=== PATIENT | male | born 1950 | race Caucasian/White ===

== ENCOUNTER 2019-06-05 20:10 | Emergency (ER) | payer MEDICARE, OTHER ==
[~2019-06-05] VITALS: Ht 182.9 cm; Wt 78.0 kg
[2019-06-05 20:55] LABS: BASOPHILS % (AUTO) 0.6 % (0-1); EOSINOPHILS # (AUTO) 0.1 X10'3 (0-0.9); EOSINOPHILS % (AUTO) 2.6 % (0-6); HEMATOCRIT 38.3 % (42.0-52.0); HEMOGLOBIN 12.9 g/dl (14.0-17.9); LYMPHOCYTES # (AUTO) 1.2 X10'3 (1.1-4.8); LYMPHOCYTES % (AUTO) 22.7 % (21-51); MEAN CORPUSCULAR HGB CONC 33.6 g/dL (33.0-36.5); MEAN CORPUSCULAR VOLUME 92.3 FL (78-98); MEAN PLATELET VOLUME 8.1 FL (7.4-10.4); MONOCYTES # (AUTO) 0.6 X10'3 (0-0.9); MONOCYTES % (AUTO) 10.1 % (2-12); NEUTROPHILS # (AUTO) 3.5 X10'3 (1.8-7.7); PLATELET COUNT 176 X10'3 (140-440); RED BLOOD COUNT 4.15 X10'6 (4.70-6.10); RED CELL DISTRIBUTION WIDTH 14.1 % (11.5-14.5); WHITE BLOOD COUNT 5.5 X10'3 (4.5-11.0)
[2019-06-05 21:14] LABS: ALANINE AMINOTRANSFERASE 29 U/L (12-78); ALBUMIN 3.8 G/DL (3.4-5.0); ALBUMIN/GLOBULIN RATIO 1.1 (1.1-1.5); ALKALINE PHOSPHATASE 76 IU/L (46-116); ANION GAP 7 (8-16); ASPARTATE AMINO TRANSFERASE 19 U/L (10-37); BILIRUBIN,TOTAL 0.3 MG/DL (0.1-1.0); BLOOD UREA NITROGEN 27 MG/DL (7-18); BUN/CREATININE RATIO 32.5 (5.4-32.0); CALCIUM 8.8 MG/DL (8.5-10.1); CHLORIDE 105 MMOL/L (99-107); CREATININE 0.83 MG/DL (0.60-1.10); GLUCOSE 115 MG/DL (70-104); SODIUM 139 MMOL/L (135-145); TOTAL CARBON DIOXIDE 26.7 MMOL/L (24-32); TOTAL PROTEIN 7.4 G/DL (6.4-8.2); eGFR > 90 ML/MIN
[2019-06-05 21:33] LABS: CLARITY,URINE BLOODY (Clear); COLOR,URINE RED (Yellow)
[2019-06-05 21:34] LABS: UA COLLECTION TYPE CLN CATCH MIDSTREAM
[2019-06-05 21:50] LABS: BACTERIA,URINE NONE SEEN /HPF (Neg); RBC,URINE TNTC /HPF (0-2); SQUAMOUS EPITHELIAL CELL,UR NONE SEEN /LPF (FEW); WBC,URINE 50-100 /HPF (0-4)
[2019-06-05 22:58] VITALS: BP 133/75
--- NOTE | 2019-06-05 23:26 | NUR ---
Flushed patients catheter with 50ml of sterile water. Flushed easily and catheter began draining immediately
== END 2019-06-06 00:14 | disposition home or self-care (01) ==
LOC: ER 20:10
DX: T83.098A Other mechanical complication of other urinary catheter, initial encounter (principal); Z88.0 Allergy status to penicillin; Y84.6 Urinary catheterization as the cause of abnormal reaction of the patient, or of later complication, without mention of misadventure at the time of the procedure; Y92.89 Other specified places as the place of occurrence of the external cause
CPT/HCPCS: 36415; 80053; 81001; 85025; 85610; 87077; 87088; 87186; 99283

== ENCOUNTER 2020-04-23 05:54 | Emergency (ER) | payer MEDICARE, OTHER ==
[~2020-04-23] VITALS: Ht 182.9 cm; Wt 80.0 kg
--- NOTE | 2020-04-23 06:59 | NUR ---
suprapubic catheter irrigated, clot was dislodged with irrigation, no other clots or blood seen in urine, provider was advised and all orders were canceled and no longer needed.
--- NOTE | 2020-04-23 07:05 | NUR ---
pt ready for discharge, awaiting [facility]
[2020-04-23 07:13] VITALS: BP 113/87
== END 2020-04-23 09:49 | disposition home or self-care (01) ==
LOC: ER 05:55
DX: N13.9 Obstructive and reflux uropathy, unspecified (principal); T83.098A Other mechanical complication of other urinary catheter, initial encounter; Z98.890 Other specified postprocedural states; Z88.0 Allergy status to penicillin
CPT/HCPCS: 99284

== ENCOUNTER 2021-10-23 07:43 | Emergency (ER) | payer MEDICARE, OTHER ==
[~2021-10-23] VITALS: Ht 180.3 cm; Wt 78.0 kg
[2021-10-23] MEDS ORDERED: ondansetron 4mg rapidly disintigrating tab PO ONE (09:20)
[2021-10-23] MEDS ORDERED: HYDROcodone/acetaminophen 5mg/325mg tablet PO ONE (09:20)
[2021-10-23 09:31] LABS: BASOPHILS % (AUTO) 0.6 % (0-1); EOSINOPHILS % (AUTO) 0.4 % (0-6); HEMATOCRIT 33.5 % (42.0-52.0); HEMOGLOBIN 10.8 g/dl (14.0-17.9); LYMPHOCYTES # (AUTO) 1.3 X10'3 (1.1-4.8); LYMPHOCYTES % (AUTO) 18.1 % (21-51); MEAN CORPUSCULAR HEMOGLOBIN 23.7 PG (27.0-31.0); MEAN CORPUSCULAR HGB CONC 32.2 g/dL (33.0-36.5); MEAN CORPUSCULAR VOLUME 73.5 FL (78-98); MEAN PLATELET VOLUME 7.6 FL (7.4-10.4); MONOCYTES # (AUTO) 0.5 X10'3 (0-0.9); MONOCYTES % (AUTO) 6.6 % (2-12); NEUTROPHILS # (AUTO) 5.4 X10'3 (1.8-7.7); NEUTROPHILS % (AUTO) 74.3 % (42-75); PLATELET COUNT 287 X10'3 (140-440); RED BLOOD COUNT 4.56 X10'6 (4.70-6.10); RED CELL DISTRIBUTION WIDTH 23.7 % (11.5-14.5); WHITE BLOOD COUNT 7.3 X10'3 (4.5-11.0)
[2021-10-23 09:53] LABS: ALANINE AMINOTRANSFERASE 129 U/L (12-78); ALBUMIN 3.7 G/DL (3.4-5.0); ALKALINE PHOSPHATASE 71 IU/L (46-116); ANION GAP 12 (8-16); ASPARTATE AMINO TRANSFERASE 110 U/L (10-37); BILIRUBIN,TOTAL 0.2 MG/DL (0.1-1.0); BLOOD UREA NITROGEN 13 MG/DL (7-18); BUN/CREATININE RATIO 15.7 (5.4-32.0); CALCIUM 8.2 MG/DL (8.5-10.1); CHLORIDE 109 MMOL/L (99-107); CREATININE 0.83 MG/DL (0.60-1.10); GLUCOSE 96 MG/DL (70-104); POTASSIUM 3.8 MMOL/L (3.5-5.1); SODIUM 148 MMOL/L (135-145); TOTAL CARBON DIOXIDE 27.3 MMOL/L (24-32); TOTAL PROTEIN 7.5 G/DL (6.4-8.2); eGFR > 90 ML/MIN
[2021-10-23 09:54] LABS: CLARITY,URINE SLIGHTLY CLOUDY (Clear); COLOR,URINE STRAW (Yellow); GLUCOSE, URINE NEGATIVE (Neg); KETONES,URINE NEGATIVE (Neg); LEUKOCYTE ESTERASE ,URINE NEGATIVE (Neg); NITRITES, URINE POSITIVE (Neg); OCCULT BLOOD,URINE TRACE-INTACT (Neg); PROTEIN,URINE 30 mg/dl (Neg); UA COLLECTION TYPE CLN CATCH MIDSTREAM; UROBILINOGEN,URINE 0.2 E.U/dL (0.2-1.0)
[2021-10-23 09:56] LABS: ETHANOL 0.306 GM/DL (0.0-0.010)
[2021-10-23 10:01] LABS: BACTERIA,URINE 3+ /HPF (Neg); RBC,URINE 0-2 /HPF (0-2); SQUAMOUS EPITHELIAL CELL,UR NONE SEEN /LPF (FEW)
[2021-10-23 10:02] LABS: MUCUS STRANDS FEW /LPF (Neg); RENAL CELLS, URINE FEW /HPF; WBC CLUMPS,URINE FEW /HPF (NEGATIVE)
[2021-10-23 10:06] LABS: PLATELET ESTIMATE NORMAL
[2021-10-23 10:07] LABS: ANISOCYTOSIS 3+; ELLIPTOCYTES FEW; HYPOCHROMASIA 1+; MICROCYTOSIS 1+; SCHISTOCYTES FEW
[2021-10-23 10:08] LABS: URINE AMPHETAMINE SCREEN NEGATIVE (Neg); URINE BARBITUATE SCREEN NEGATIVE (Neg); URINE BENZODIAZEPINES SCREEN NEGATIVE (Neg); URINE CANNABINOID SCREEN NEGATIVE (Neg); URINE COCAINE SCREEN NEGATIVE (Neg); URINE METHADONE SCREEN NEGATIVE (Neg); URINE OPIATE SCREEN NEGATIVE (Neg); URINE PHENCYCLIDINE SCREEN NEGATIVE (Neg)
[2021-10-23] MEDS: nitrofuran/nitrofuran macrocrysal 100 MG capsule PO SCH (11:15)
--- NOTE | 2021-10-23 12:57 | NUR ---
Received patient from main ED. Pt was brought over by PCT in wheelchair. Pt presents with a bright affect stating as he was passing nurse station "don't by a [place]."
--- NOTE | 2021-10-23 14:00 | NUR ---
PREFERS TO BE CALLED GO
--- NOTE | 2021-10-23 14:06 | NUR ---
One on one with patient completed at bedside. Pt presents talkative, animated and emotional. Pt reports "I haven't slept in over a month, that's enough to make any bonkers." Pt has had several recent stressors. A close friend "Jack" recently unexpectantly. Pt states he has known Jack for 24 years. "He was the last link to my life before [place]." "The last link to my days in the [place] area." Pt states "I have lost family and other friends, but this... this is a big one." Pt reports he has no family. Pt also received news from his doctor that he may have colon cancer. Pt has a colonoscopy scheduled in the next couple of weeks. He has had to "wait 4-6 weeks" for this appointment. Pt stated "I'm not afraid of the test, I'm scared blind for the results." Pt is very distraght when he speaks of these stressors. "When the doctor said he wanted to r/o cancer, I thought he just ruled in cancer." Pt said "Do you know that Charline mott, [employer] [place] Man?" Well, that's me. Pt does smell of ETOH, states he doesn't remember where he got the alcohol "I consumed it out." (meaning he drank it away from the [place] home.) Pt has a vehicle he diggs at the [facility].
--- NOTE | 2021-10-23 14:08 | NUR ---
Pt has a suprapubic catheter, that he cares for independently. Urinal at bedside.
--- NOTE | 2021-10-23 16:05 | NUR ---
Pt resting comfortably on right side, no distress noted.
--- NOTE | 2021-10-23 17:16 | NUR ---
[facility] at bedside.
--- NOTE | 2021-10-23 18:30 | NUR ---
void 300cc urinal and then dozed off to sleep.
[2021-10-24] MEDS: nitrofuran/nitrofuran macrocrysal 100 MG capsule PO SCH ×2 (00:12→08:56)
--- NOTE | 2021-10-24 00:17 | NUR ---
awoke took his macrobid emptied his urostomy bag of 120cc cloudy urine and gave him another pitcher of water. then he laid back down attempt to go back to sleep.
--- NOTE | 2021-10-24 06:30 | NUR ---
Assumed care of patient. Pt resting comfortably, respirations even and unlabored.
[2021-10-24] MEDS ORDERED: iron polysaccharide complex 150mg capsule PO SCH (08:00)
[2021-10-24] MEDS ORDERED: ascorbic acid 500mg tablet PO SCH (08:00)
--- NOTE | 2021-10-24 08:30 | NUR ---
Pt eating his breakfast, pt pleasant. Pt continues to be talkative stating "I am so embarrassed." "I was disrecptful to all the staff."
[2021-10-24] MEDS ORDERED: NITR100C PO (09:35)
--- NOTE | 2021-10-24 10:30 | NUR ---
Pt resting comfortably, respirations even and unlabored. Woke pt to sign discharge papers. Pt's transportation ETA 1100.
--- NOTE | 2021-10-24 11:47 | NUR ---
DISCHARGE NOTE: Patient was discharged from unit at 1130. Pt left with all personal belongings and ETOH resources. Pt lives at [facility] home on [address]. Pt felt remorse for his episode of drinking. Pt left with written AXB prescription. Pt was A&O x4.
[2021-10-24 12:13] VITALS: BP 116/73
== END 2021-10-24 12:24 ==
LOC: ER 07:44
DX: R45.851 Suicidal ideations (principal); Z20.822 Contact with and (suspected) exposure to COVID-19; N39.0 Urinary tract infection, site not specified; R94.6 Abnormal results of thyroid function studies; F41.9 Anxiety disorder, unspecified; F32.9 Major depressive disorder, single episode, unspecified; Z87.440 Personal history of urinary (tract) infections; Z88.0 Allergy status to penicillin; Z79.899 Other long term (current) drug therapy; Z85.038 Personal history of other malignant neoplasm of large intestine
CPT/HCPCS: 36415; 80053; 80305; 80320; 81001; 84443; 85008; 85025; 87635; 99285; C9803

== ENCOUNTER 2023-12-01 08:11 | Emergency (ER) | payer OTHER ==
[~2023-12-01] VITALS: Ht 170.2 cm; Wt 79.5 kg
[~2023-12-01 08:11] MED LIST: ACET325T55 PO; ASCO500C18 PO; IBUP-860 PO; IRON150C5 PO
[2023-12-01 08:13] VITALS: TEMP 97.9
[2023-12-01] MEDS: normal saline 1000ML IV soln IV ONE ×2 (08:32→12:10)
[2023-12-01 09:31] LABS: BASOPHILS # (AUTO) 0.1 X10'3 (0-0.2); BASOPHILS % (AUTO) 1.2 % (0-1); EOSINOPHILS # (AUTO) 0.1 X10'3 (0-0.9); EOSINOPHILS % (AUTO) 1.8 % (0-6); HEMATOCRIT 36.2 % (42.0-52.0); HEMOGLOBIN 11.3 g/dl (14.0-17.9); LYMPHOCYTES # (AUTO) 1.6 X10'3 (1.1-4.8); LYMPHOCYTES % (AUTO) 37.8 % (21-51); MEAN CORPUSCULAR HEMOGLOBIN 24.9 PG (27.0-31.0); MEAN CORPUSCULAR HGB CONC 31.2 g/dL (33.0-36.5); MEAN CORPUSCULAR VOLUME 79.9 FL (78-98); MEAN PLATELET VOLUME 8.2 FL (7.4-10.4); MONOCYTES # (AUTO) 0.5 X10'3 (0-0.9); MONOCYTES % (AUTO) 11.3 % (2-12); NEUTROPHILS % (AUTO) 47.9 % (42-75); PLATELET COUNT 196 X10'3 (140-440); RED BLOOD COUNT 4.53 X10'6 (4.70-6.10); RED CELL DISTRIBUTION WIDTH 24.9 % (11.5-14.5); WHITE BLOOD COUNT 4.2 X10'3 (4.5-11.0)
[2023-12-01 10:40] LABS: ALANINE AMINOTRANSFERASE 59 U/L (12-78); ALBUMIN 3.5 G/DL (3.4-5.0); ALKALINE PHOSPHATASE 74 IU/L (46-116); ANION GAP 13 (8-16); ASPARTATE AMINO TRANSFERASE 36 U/L (10-37); BILIRUBIN,TOTAL 0.2 MG/DL (0.1-1.0); BLOOD UREA NITROGEN 16 MG/DL (7-18); CALCIUM 7.5 MG/DL (8.5-10.1); CHLORIDE 111 MMOL/L (99-107); CREATININE 0.94 MG/DL (0.60-1.10); GLUCOSE 104 MG/DL (70-104); POTASSIUM 3.4 MMOL/L (3.5-5.1); SODIUM 144 MMOL/L (135-145); TOTAL CARBON DIOXIDE 20.2 MMOL/L (24-32); eCRCL 63 ML/MIN; eGFR 78 ML/MIN
[2023-12-01 10:43] LABS: BILIRUBIN,DIRECT 0.1 MG/DL (0-0.3); MAGNESIUM 2.4 MG/DL (1.5-2.4)
[2023-12-01 10:48] LABS: ETHANOL 436 MG/DL (<10)
[2023-12-01 11:11] LABS: BILIRUBIN,URINE NEGATIVE (Neg); CLARITY,URINE CLEAR (Clear); COLOR,URINE STRAW (Yellow); GLUCOSE, URINE NEGATIVE (Neg); KETONES,URINE NEGATIVE (Neg); LEUKOCYTE ESTERASE ,URINE NEGATIVE (Neg); NITRITES, URINE POSITIVE (Neg); OCCULT BLOOD,URINE TRACE-INTACT (Neg); PH,URINE 5.5 (4.8-8.0); PROTEIN,URINE NEGATIVE (Neg); UROBILINOGEN,URINE 0.2 E.U/dL (0.2-1.0)
[2023-12-01 11:16] LABS: ANISOCYTOSIS 3+; ELLIPTOCYTES FEW; HYPOCHROMASIA 1+; MICROCYTOSIS 1+; PLATELET ESTIMATE NORMAL
[2023-12-01 11:18] LABS: UA COLLECTION TYPE FOLEY CATH
[2023-12-01 11:21] LABS: BACTERIA,URINE 2+ /HPF (Neg); HYALINE CASTS 0-3 /LPF (NEGATIVE); MUCUS STRANDS NONE SEEN /LPF (Neg); RBC,URINE 0-2 /HPF (0-2); RENAL CELLS, URINE FEW /HPF; SQUAMOUS EPITHELIAL CELL,UR NONE SEEN /LPF (FEW)
[2023-12-01] MEDS: CefTRIAXone 2gm/D5W 50ml BAG 50 ML IV ONE (12:10)
[2023-12-01 12:25] VITALS: O2SAT 99
[2023-12-01 15:15] VITALS: BP 111/69; PULSE 85; RESP 16
[2023-12-01] MEDS ORDERED: CEPH250T PO (15:21)
== END 2023-12-01 15:49 | disposition home or self-care (01) ==
LOC: ER 08:12
DX: F10.129 Alcohol abuse with intoxication, unspecified (principal); N39.0 Urinary tract infection, site not specified; Z88.0 Allergy status to penicillin; Z79.899 Other long term (current) drug therapy; Z79.2 Long term (current) use of antibiotics; Y90.9 Presence of alcohol in blood, level not specified
CPT/HCPCS: 36415; 70450; 71045; 80048; 80076; 80320; 81001; 83735; 84145; 85008; 85025; 87077; 87088; 87186; 93005; 96365; 99285; J0696; J7030